=== PATIENT | male | born 2000 | race Caucasian/White ===

== ENCOUNTER 2020-07-27 14:58 | Emergency (ER) | payer SELFPAY ==
[~2020-07-27] VITALS: Ht 177.8 cm; Wt 61.2 kg
[2020-07-27 15:05] VITALS: Ht 177.8 cm; Wt 61.2 kg
[2020-07-27 15:56] VITALS: BP 120/70
== END 2020-07-27 15:56 | disposition home or self-care (01) ==
LOC: ED 14:58
DX: R05 Cough (principal); Z20.828 Contact with and (suspected) exposure to other viral communicable diseases
CPT/HCPCS: U0003-CS